=== PATIENT | male | born 1975 | race Caucasian/White ===

== ENCOUNTER 2022-07-12 11:37 | Outpatient (CLI) | payer OTHER, SELFPAY | END 2022-07-12 11:38 | disposition home or self-care (01) | PROVIDERS: PCP Family Medicine; Visit Provider Family Medicine | DX: Z00.00 Encounter for general adult medical examination without abnormal findings (principal); R53.83 Other fatigue; F32.A Depression, unspecified; Z12.5 Encounter for screening for malignant neoplasm of prostate | CPT/HCPCS: 80053; 80061; 84153; 84443 ==

== ENCOUNTER 2022-07-15 10:36 | Outpatient (CLI) | payer OTHER, SELFPAY | END 2022-07-15 10:37 | disposition home or self-care (01) | LOC: NFLDREF 07-17 11:59 | PROVIDERS: PCP Family Medicine; Referring Provider Family Medicine; Visit Provider Nurse Practitioner Family | DX: F32.A Depression, unspecified (principal); E03.9 Hypothyroidism, unspecified; G47.00 Insomnia, unspecified; F41.9 Anxiety disorder, unspecified | CPT/HCPCS: 82306 ==

== ENCOUNTER 2022-09-16 08:14 | Outpatient (CLI) | payer OTHER, SELFPAY | END 2022-09-16 08:15 | disposition home or self-care (01) | LOC: NFLDREF 19:17 | PROVIDERS: PCP Family Medicine; Referring Provider Family Medicine; Visit Provider Family Medicine | DX: E03.9 Hypothyroidism, unspecified (principal); E55.9 Vitamin D deficiency, unspecified; E78.00 Pure hypercholesterolemia, unspecified; F10.10 Alcohol abuse, uncomplicated; Z79.899 Other long term (current) drug therapy | CPT/HCPCS: 80053; 80061; 82306; 84443 ==

== ENCOUNTER 2022-10-05 06:02 | Outpatient (CLI) | payer OTHER, SELFPAY ==
--- NOTE | 2022-10-05 07:12 | W.ANESCHARGE ---
Anesthesia Charges Start Date/Time Anesthesia Start Date: 10/05/22 Anesthesia Start Time: 07:10 Stop Date/Time Anesthesia Stop Date: 10/05/22 Anesthesia Stop Time: 07:38
--- NOTE | 2022-10-05 07:40 | W.ANESCHARGE ---
Anesthesia Charges Start Date/Time Anesthesia Start Date: 10/05/22 Anesthesia Start Time: 07:10 Stop Date/Time Anesthesia Stop Date: 10/05/22 Anesthesia Stop Time: 07:38
== END 2022-10-05 06:03 | disposition home or self-care (01) ==
LOC: OP CLINIC 06:03
PROVIDERS: PCP Family Medicine; Visit Provider Internal Medicine
DX: Z12.11 Encounter for screening for malignant neoplasm of colon (principal)
CPT/HCPCS: 00812; 45378; J2704

== ENCOUNTER 2023-11-07 14:37 | Outpatient (CLI) | payer OTHER, SELFPAY | END 2023-11-07 14:38 | disposition home or self-care (01) | PROVIDERS: PCP Family Medicine; Visit Provider Family Medicine | DX: E55.9 Vitamin D deficiency, unspecified (principal); E03.9 Hypothyroidism, unspecified; I10 Essential (primary) hypertension; E78.00 Pure hypercholesterolemia, unspecified; Z80.42 Family history of malignant neoplasm of prostate; Z12.5 Encounter for screening for malignant neoplasm of prostate | CPT/HCPCS: 80053; 80061; 82306; 84443; G0103 ==

== ENCOUNTER 2023-12-01 09:52 | Outpatient (CLI) | payer OTHER, SELFPAY | END 2023-12-01 09:53 | disposition home or self-care (01) | LOC: NFLDREF 12-06 07:43 | PROVIDERS: PCP Family Medicine; Referring Provider Family Medicine; Visit Provider Family Medicine | DX: E03.9 Hypothyroidism, unspecified (principal) | CPT/HCPCS: 84443 ==

== ENCOUNTER 2024-07-04 08:25 | Outpatient (CLI) | payer OTHER, SELFPAY | END 2024-07-04 08:26 | disposition home or self-care (01) | LOC: NFLDREF 07-09 03:03 | PROVIDERS: PCP Family Medicine; Referring Provider Family Medicine; Visit Provider Family Medicine | DX: E03.9 Hypothyroidism, unspecified (principal) | CPT/HCPCS: 84443 ==

== ENCOUNTER 2024-08-24 10:26 | Outpatient (CLI) | payer OTHER, SELFPAY | END 2024-08-24 10:27 | disposition home or self-care (01) | PROVIDERS: PCP Family Medicine; Visit Provider Family Medicine | DX: E03.9 Hypothyroidism, unspecified (principal); E78.00 Pure hypercholesterolemia, unspecified; I10 Essential (primary) hypertension; R53.83 Other fatigue | CPT/HCPCS: 80053; 84270; 84402; 84403; 84443 ==

== ENCOUNTER 2024-09-04 07:07 | Outpatient (CLI) | payer OTHER, SELFPAY ==
--- NOTE | 2024-09-04 07:15 | CRLHL7_ITS ---
For Patients: As a result of the Century Cures Act, medical imaging exams and procedure reports are released immediately into your electronic medical record. You may view this report before your referring provider. If you have questions, please contact your health care provider. INDICATION: ELEVATED LIVER ENZYMES COMPARISON: none TECHNIQUE: Real time chang scale imaging and color Doppler analysis was performed of the right upper quadrant. FINDINGS: Liver measures 20.3 cm. Liver echotexture is diffusely increased. No intrahepatic mass. There is a normal appearance of the visualized hepatic IVC and proximal abdominal aorta. There is no evidence of ascites. The gallbladder is of normal size and there is no evidence of intraluminal stones or sludge. The gallbladder wall measures 2 mm in thickness. The common bile duct is of normal size and measures 5 mm in diameter at the level of the jose hepatis. The pancreas is not well visualized due to overlying bowel gas. There is no evidence of a stone or hydronephrosis within the right kidney. The right kidney measures 11.7 cm in length. IMPRESSION: Hepatomegaly with diffuse hepatic steatosis. Remainder unremarkable, as visualized. Dictated by Ori Owens MD @ 09/04/2024 8:40:17 AM (Electronically Signed)
== END 2024-09-04 07:08 | disposition home or self-care (01) ==
LOC: US 07:09
PROVIDERS: PCP Family Medicine; Visit Provider Family Medicine
DX: R79.89 Other specified abnormal findings of blood chemistry (principal); R16.0 Hepatomegaly, not elsewhere classified; K76.0 Fatty (change of) liver, not elsewhere classified
CPT/HCPCS: 76705

== ENCOUNTER 2024-10-08 08:05 | Outpatient (CLI) | payer OTHER, SELFPAY | END 2024-10-08 08:06 | disposition home or self-care (01) | LOC: NFLDREF 10-09 15:25 | PROVIDERS: PCP Family Medicine; Referring Provider Family Medicine; Visit Provider Family Medicine | DX: E78.00 Pure hypercholesterolemia, unspecified (principal); Z12.5 Encounter for screening for malignant neoplasm of prostate | CPT/HCPCS: 80061; 80076; G0103 ==

== ENCOUNTER 2024-11-01 10:11 | Outpatient (CLI) | payer OTHER, SELFPAY | END 2024-11-01 10:12 | disposition home or self-care (01) | PROVIDERS: PCP Family Medicine; Visit Provider Family Medicine | DX: E03.9 Hypothyroidism, unspecified (principal); I10 Essential (primary) hypertension; E55.9 Vitamin D deficiency, unspecified | CPT/HCPCS: 80048; 82306; 84443 ==

== ENCOUNTER 2024-12-27 08:57 | Outpatient (CLI) | payer OTHER, SELFPAY | END 2024-12-27 08:58 | disposition home or self-care (01) | LOC: NFLDREF 01-03 03:41 | PROVIDERS: PCP Family Medicine; Referring Provider Family Medicine; Visit Provider Family Medicine | DX: E78.00 Pure hypercholesterolemia, unspecified (principal); E03.9 Hypothyroidism, unspecified; I10 Essential (primary) hypertension; K76.0 Fatty (change of) liver, not elsewhere classified; R79.89 Other specified abnormal findings of blood chemistry; E55.9 Vitamin D deficiency, unspecified; Z12.5 Encounter for screening for malignant neoplasm of prostate | CPT/HCPCS: 80053; 80061; 82306; 84443; G0103 ==